=== PATIENT | male | born 1980 | race Two or more races ===

== ENCOUNTER 2021-08-22 19:52 | Inpatient (IN) | payer MEDICAID ==
[~2021-08-22] VITALS: Ht 190.5 cm; Wt 78.8 kg
[2021-08-22] MEDS ORDERED: OLANZapine 2.5MG tablet PO STA (20:16)
[2021-08-22 20:22] LABS: BASOPHILS % (AUTO) 0.3 % (0-1); EOSINOPHILS % (AUTO) 0.1 % (0-6); HEMATOCRIT 39.5 % (42.0-52.0); HEMOGLOBIN 13.9 g/dl (14.0-17.9); LYMPHOCYTES % (AUTO) 11.8 % (21-51); MEAN CORPUSCULAR HEMOGLOBIN 31.7 PG (27.0-31.0); MEAN CORPUSCULAR HGB CONC 35.2 g/dL (33.0-36.5); MEAN CORPUSCULAR VOLUME 90.1 FL (78-98); MEAN PLATELET VOLUME 9.2 FL (7.4-10.4); MONOCYTES # (AUTO) 0.6 X10'3 (0-0.9); MONOCYTES % (AUTO) 7.1 % (2-12); NEUTROPHILS # (AUTO) 6.8 X10'3 (1.8-7.7); NEUTROPHILS % (AUTO) 80.7 % (42-75); PLATELET COUNT 213 X10'3 (140-440); RED BLOOD COUNT 4.38 X10'6 (4.70-6.10); RED CELL DISTRIBUTION WIDTH 13.1 % (11.5-14.5); WHITE BLOOD COUNT 8.4 X10'3 (4.5-11.0)
[2021-08-22 20:42] LABS: ALANINE AMINOTRANSFERASE 122 U/L (12-78); ALBUMIN 4.1 G/DL (3.4-5.0); ALBUMIN/GLOBULIN RATIO 1.2 (1.1-1.5); ALKALINE PHOSPHATASE 60 IU/L (46-116); ANION GAP 11 (8-16); ASPARTATE AMINO TRANSFERASE 161 U/L (10-37); BILIRUBIN,TOTAL 0.7 MG/DL (0.1-1.0); BLOOD UREA NITROGEN 24 MG/DL (7-18); BUN/CREATININE RATIO 29.6 (5.4-32.0); CALCIUM 8.9 MG/DL (8.5-10.1); CHLORIDE 102 MMOL/L (99-107); CREATININE 0.81 MG/DL (0.60-1.10); ETHANOL < 0.010 GM/DL (0.0-0.010); GLUCOSE 122 MG/DL (70-104); POTASSIUM 3.7 MMOL/L (3.5-5.1); SODIUM 138 MMOL/L (135-145); TOTAL PROTEIN 7.6 G/DL (6.4-8.2); eGFR > 90 ML/MIN
--- NOTE | 2021-08-22 20:47 | NUR ---
Patient is alert and oriented x 4, but answers to questions are inappropriate
--- NOTE | 2021-08-22 20:56 | NUR ---
Pt unable to participate in Medical history and assessment. Pt unable to give allergy information or medications he taking.
--- NOTE | 2021-08-22 21:08 | NUR ---
ONLY THING PT CAME WITH WAS HIS ID. REGISTRATION LOCKED IT IN THE SAFE. NO OTHER BELONGINGS.
--- NOTE | 2021-08-22 21:27 | NUR ---
Pt arrived to ED overflow from main ED. Patient in bed rambling. Making nonsensical statements.Patient given water. Patient given snacks. Patient reports that he is on a Keto diet. When asked why pt was in senior living the pt replied he had been working to many hours and is here to rest. Patient is currently quiet in bed.
--- NOTE | 2021-08-22 22:23 | NUR ---
patient appears to be sleeping at this time.
--- NOTE | 2021-08-22 23:21 | NUR ---
UA obtained with prompting. Patient now mumbling non sensical statements in bed.
[2021-08-22 23:43] LABS: URINE AMPHETAMINE SCREEN NEGATIVE (Neg); URINE BARBITUATE SCREEN NEGATIVE (Neg); URINE BENZODIAZEPINES SCREEN NEGATIVE (Neg); URINE CANNABINOID SCREEN POSITIVE (Neg); URINE COCAINE SCREEN NEGATIVE (Neg); URINE METHADONE SCREEN NEGATIVE (Neg); URINE OPIATE SCREEN NEGATIVE (Neg); URINE PHENCYCLIDINE SCREEN NEGATIVE (Neg)
[2021-08-23] MEDS ORDERED: diphenhydrAMINE 25mg capsule PO ONE (00:30)
[2021-08-23] MEDS ORDERED: LORazepam 1 MG tablet PO ONE ×3 (00:30→11:05)
--- NOTE | 2021-08-23 02:19 | NUR ---
Patient finally fell asleep, patient lyng in bed mumbling for most of the evening.
--- NOTE | 2021-08-23 04:52 | NUR ---
Patient appears to be sleeping.
--- NOTE | 2021-08-23 06:15 | NUR ---
Pt. recieved sleeping, no s/sx of distress noted.
--- NOTE | 2021-08-23 07:31 | NUR ---
Pt. awake, responding to IS, presents as agitated and yelling at medical writer.
--- NOTE | 2021-08-23 07:39 | NUR ---
Frame Sample And Pattern Supervisor attempted to give PO Ativan for agitation; pt. refused med.
--- NOTE | 2021-08-23 08:30 | NUR ---
Pt. eating breakfast, verbalizing off the wall comments
--- NOTE | 2021-08-23 09:00 | NUR ---
[facility] at the bedside with pt. security on standby, pt presents with delusional statements.
--- NOTE | 2021-08-23 10:05 | NUR ---
Per pt. Lisa Nelson is his next of kin and staff is available to speak to her
--- NOTE | 2021-08-23 10:11 | NUR ---
Next of Kin: Lisa Nelson @[phone]
--- NOTE | 2021-08-23 10:12 | NUR ---
Addendum to next of Kin note: Lisa Macario cell:[phone]
--- NOTE | 2021-08-23 11:00 | NUR ---
Pt. presents disorganized he put his pants on his upper torso and ripped the seam out to put his head through and the shirt was being worn as a bottom, and wearing a pillowcase on his head. He is unable to be redirected and became agitated and with an elevated voice with signs of escalation. Provider notified; PRN recieved.
[2021-08-23] MEDS ORDERED: acetaminophen 325mg tablet PO ONE (11:05)
--- NOTE | 2021-08-23 12:10 | NUR ---
Patient in the BR cleaning his feet. Patient advised his lunch was at bedside. Patient verbalized understanding. No distress observed. Continue to monitor.
--- NOTE | 2021-08-23 13:10 | NUR ---
Pt. awake laying in bed, no s/sx of distress.
--- NOTE | 2021-08-23 14:22 | NUR ---
Pt. standing at the nurses station, requesting food and discussing previous care with a [place] medicine specialist.
--- NOTE | 2021-08-23 14:38 | NUR ---
Pt. back at the nurses station, now eating a snack and responding appropriately, pt. presents with a much clearer thought process and engaging in conversation.
--- NOTE | 2021-08-23 16:30 | NUR ---
Pt. asleep, normal breathing pattern, no s/sx of distress.
--- NOTE | 2021-08-23 17:08 | NUR ---
Recieved a phone call from Verito with [facility], reviewed pt. recent stay along with labs. She will call back with any further questions.
--- NOTE | 2021-08-23 17:23 | NUR ---
Pt. asleep on his back, normal breathing pattern, no s/sx of distress noted.
--- NOTE | 2021-08-23 18:00 | NUR ---
Pt. awake and eating dinner at the bedside.
[2021-08-23] MEDS ORDERED: ibuprofen tablet 400 MG TABLET PO ONE (19:15)
[2021-08-23] MEDS: OLANZapine 2.5MG tablet PO SCH (19:42)
--- NOTE | 2021-08-23 20:40 | NUR ---
Pt on phone talking to mother at this time. Pt pleasnt and cooperative. Manic behavior. Order for 10 mg Zyprexa obtained pt cooperative took medication. Pt conversation disorganized and tangential. Pt wants to be discharged. Pt satisified to wait till tomorrow and talk to [facility].
--- NOTE | 2021-08-23 22:44 | NUR ---
Pt able to calm himself after Zyprxa given and is asleep at this time.
--- NOTE | 2021-08-24 01:44 | NUR ---
Pt slept for a couple of hours. Woke up removed scrubs and was out of bed with just a towel wrapped around his waist. Informed this is not acceptable he needed to put the scrubs back on. Pt was at least partially compliant. In bed covered up wearing scrub tops unclear if he put bottoms back on.
[2021-08-24] MEDS ORDERED: diphenhydrAMINE 25mg capsule PO ONE (02:25)
--- NOTE | 2021-08-24 03:07 | NUR ---
PT UP PACING THE MOORE.
--- NOTE | 2021-08-24 04:11 | NUR ---
Pt lying quietly in bed. Given 50mg Benadryl PO. Pt continues to be disorganized and tangential but cooperative with care.
--- NOTE | 2021-08-24 05:55 | NUR ---
Pt has been sleeping for the past 2 hours.
[2021-08-24] MEDS ORDERED: LORazepam 1 MG tablet PO ONE (06:45)
--- NOTE | 2021-08-24 06:59 | NUR ---
Pt has been awake since shift change. Pt presents with rapid, disorganized speech. Pt has a pillow case wrapped around his head like a turban. Pt is walking around his bed looking up at the ceiling and mirror "saying I like really like that." "That is really nice." Pt is talking to himself, unsure if he is responding to internal stimuli as he is denying A/VH. Pt asked for "NSAID." "I need it for my potassium sparing headaches." Received in report pt slept intermittently for about 5 hours. Pt received Ativan 1mg yesterday with good effect in decreasing his manic behavior. Received order and administered PO Ativan 1mg. Pt took with out hesitation. Will continue to monitor.
--- NOTE | 2021-08-24 08:30 | NUR ---
Pt up to nurses station talking with staff. Pt presents with some grandiose statements, difficult to obtain what is truth. Pt is pleasant. Pt took the pillow case off his head.
[2021-08-24] MEDS: nicotine 21mg patch - 24 hr TD SCH (08:43)
--- NOTE | 2021-08-24 09:58 | NUR ---
Pt resting quietly on his bed.
--- NOTE | 2021-08-24 11:02 | NUR ---
Pt awake standing at nurses station talking with staff. Pt presents with tangential, rapid speech. Pt has no behaviors to report.
--- NOTE | 2021-08-24 11:25 | NUR ---
Pt was accepted to [facility]. Canteen Operator exp what to expect, pt stated he was looking forward to taking a shower.
--- NOTE | 2021-08-24 12:56 | NUR ---
Pt is standing at his bedside, required some redirection as he was playing with the bed controls and had bed discombobulated. Pt ate 2 trays for lunch, as we had an extra one, licked the tray after finishing. Lunch trays were received.
[2021-08-24 13:25] VITALS: BP 122/72
[2021-08-24] MEDS ORDERED: NICOTINE POLACRILEX 2 MG LOZENGE BC PRN ×2 (13:30→22:10)
[2021-08-24] MEDS ORDERED: magnesium hydroxide 30ml (MOM) UD suspension PO PRN (13:30)
[2021-08-24] MEDS ORDERED: loperamide 2mg capsule PO PRN (13:30)
[2021-08-24] MEDS ORDERED: mag hydrox/Alum hydrox/simeth 30ml oral suspension PO PRN (13:30)
[2021-08-24] MEDS: LORazepam 1 MG tablet PO PRN (15:17)
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
--- NOTE | 2021-08-24 16:48 | NUR ---
Patient took one hour in the shower before exiting. Patient is hyperverbal and tangential. Patient unable to sit down and answer admission questions. Gave patient Ativan and he and peer who is also argumentative arguing with one another in the Community Room. Extremely Hypomanic. Difficult when asking patient to sit down and answer questions. Argumentative with peer. "I kicked my SO out of the new property we just bought." "My grandmother is lying and so is my mother." Patient states "I am unable to sit down to answer any questions right now." Gave the patient a tour of the Department. He is pleasant but every question asked during the Admission Process, patient became more hypomanic, and would interrupt this teletypewriter installer to tell an irrelevant story to teletypewriter installer. LUZ Villa -------- Items Left to Discuss for Admission: Family History Assessment Malnutrition Assessment Vaccination Review Tobacco Screening Tobacco Education Past Medical History
--- NOTE | 2021-08-24 16:48 | NUR ---
Admit time 1119
[2021-08-24] MEDS: OLANZapine 2.5MG tablet PO SCH (19:15)
[2021-08-24 19:36] VITALS: BP 97/67
[2021-08-24] MEDS ORDERED: NO HOME MEDS (22:34)
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
[2021-08-25] MEDS: nicotine 21mg patch - 24 hr TD SCH ×2 (07:11→07:21)
[2021-08-25 07:54] VITALS: BP 131/74
[2021-08-25] MEDS ORDERED: nicotine 21mg patch - 24 hr TD SCH (08:00)
[2021-08-25 09:55] LABS: HEMOGLOBIN A1C 5.7 % (4.5-6.2)
[2021-08-25 09:58] LABS: CHOL/HDL RATIO 2.2 (0.00-4.99); CHOLESTEROL 168 MG/DL (0-200); HDL CHOLESTEROL 78 MG/DL (35-60); LDL CHOLESTEROL 77 MG/DL (50-100); TRIGLYCERIDES 101 MG/DL (20-135)
--- NOTE | 2021-08-25 14:13 | NUR ---
Pt. attended group today. Today we discussed Wellness and utilized the Self Care Wheel to help Patients determine the wellness/self-care activities they enjoy in each domain presented in the wheel. The four domains are the physical, spiritual, emotional and physical. We then did an art expression call Path to Wellness. Pt. engaged in the group but tended to need redirection as he presented in a manic state, he would dominate the conversation and often interrupt others. He was amenable to redirection. He shared his self care practices appropriately with the group. Pt. did not engage in the art expression but still shared his thoughts about hope with the group. Pt's thought process was linear and thought content tends to be grandiose. Oneyda Sun, OPENER
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
[2021-08-25] MEDS: OLANZapine 2.5MG tablet PO SCH (19:15)
[2021-08-25 19:50] VITALS: BP 131/65
[2021-08-25] MEDS: LORazepam 1 MG tablet PO PRN (20:37)
[2021-08-25] MEDS: divalproex sod 250mg ER (24-hour) tablet PO SCH (20:37)
[2021-08-25] MEDS: acetaminophen 325mg tablet PO PRN (20:38)
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
[2021-08-26] MEDS: nicotine 21mg patch - 24 hr TD SCH ×2 (07:59→08:00)
[2021-08-26 08:00] VITALS: BP 136/48
[2021-08-26] MEDS: acetaminophen 325mg tablet PO PRN ×2 (09:40→19:09)
[2021-08-26] MEDS: LORazepam 1 MG tablet PO PRN (09:40)
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
[2021-08-26] MEDS ORDERED: traZODone 50mg tablet PO PRN (19:10)
[2021-08-26 19:31] VITALS: BP 134/74
[2021-08-26] MEDS: divalproex sod 250mg ER (24-hour) tablet PO SCH (20:38)
[2021-08-26] MEDS: OLANZapine 2.5MG tablet PO SCH (21:00)
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
[2021-08-27] MEDS: nicotine 21mg patch - 24 hr TD SCH (07:12)
[2021-08-27] MEDS: acetaminophen 325mg tablet PO PRN ×2 (07:13→20:21)
[2021-08-27 08:00] VITALS: BP 118/77
[2021-08-27] MEDS: LORazepam 1 MG tablet PO PRN (14:22)
[2021-08-27 19:00] VITALS: BP 109/71
[2021-08-27] MEDS: OLANZapine 2.5MG tablet PO SCH (20:16)
[2021-08-27] MEDS: divalproex sod 250mg ER (24-hour) tablet PO SCH (20:16)
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
[2021-08-27] MEDS ORDERED: divalproex sod 250mg ER (24-hour) tablet PO ONE (21:25)
[2021-08-28 08:00] VITALS: BP 119/69
[2021-08-28] MEDS: nicotine 21mg patch - 24 hr TD SCH (08:22)
--- NOTE | 2021-08-28 10:38 | NUR ---
Initial: Pt admit for bipolar disorder. Currently on a regular diet and eating well with 100% PO intake throughout [facility] 08/26, with PRN bowel care available. No nutrition intervention implemented at this time. Will continue to follow and make recommendations as appropriate. Recommendations: 1) Continue regular diet 2) Bowel care PRN 3) Weekly scaled weights Addendum: 08/28/21 at [address] Amended: Links added.
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
[2021-08-28] MEDS ORDERED: OLAN5TAB75 PO (17:30)
[2021-08-28] MEDS ORDERED: TRAZ-251 PO (17:30)
[2021-08-28] MEDS ORDERED: NICO-687 TD (17:30)
[2021-08-28] MEDS ORDERED: DIVA500T9 PO (17:30)
--- NOTE | 2021-08-28 18:58 | NUR ---
POST-DISCHARGE: 08/28/2021 @ 19:00 spoke with Sherry Nelson regarding Calin's discharge. She was not aware that Calin was discharged. Informed client had been discharged.
[2021-08-28] MEDS ORDERED: divalproex sod 250mg ER (24-hour) tablet PO SCH (21:00)
== END 2021-08-28 17:57 | disposition home or self-care (01) | DRG 753 ==
LOC: ER 19:53 → ED HOLD 08-24 11:25 → ADULT MH 08-24 13:17
PROVIDERS: ADMIT Psychiatry & Neurology Psychiatry; ATTEND Psychiatry & Neurology Psychiatry
DX: F31.2 Bipolar disorder, current episode manic severe with psychotic features (principal); F17.210 Nicotine dependence, cigarettes, uncomplicated; Z20.822 Contact with and (suspected) exposure to COVID-19; Z60.2 Problems related to living alone; K80.20 Calculus of gallbladder without cholecystitis without obstruction; Z56.0 Unemployment, unspecified; Z59.00 Homelessness unspecified; Z71.6 Tobacco abuse counseling
CPT/HCPCS: 36415; 80053; 80061; 80305; 80320; 83036; 85025; 87081; 99285; A6449; Q0163